=== PATIENT | male | born 1935 | race Caucasian/White ===

== ENCOUNTER → 2017-08-08 | Emergency (ER) | payer OTHER, BC ==
[~2017-08-08] VITALS: Ht 160 cm; Wt 90.7 kg
[~2017-08-08] MED LIST: ACTOS15 MG; ALTACE5 MG; ASA81 MG; BYSTOLIC2.5 MG; DOXYCYCLINE HY100 MG; ELIQUIS5 MG; IBUPROFEN800 MG PO; ISOSORBIDE DINI30 MG; LASIX20 MG; LOVASTATIN10 MG; MEDROLPACK PO; METOPROLOL SUCC50 MG; NIACIN ER1000 MG; NIASPAN1000 MG; NITROSTAT0.4 MG; ORPH100T PO; PLAVIX75 MG; POTASSIUM10 MEQ/101; PRILOSEC20 MG; RAMIPRIL2.5 MG; RANEXA500 MG; RESTORIL22.5 MG; SINGULAIR10 MG; TAMS0.4C; ULTRAM50 MG; ZITHROMAX200 MG PO
== END | disposition home or self-care (01) ==
LOC: ER 09:18
DX: J06.9 Acute upper respiratory infection, unspecified (principal)